=== PATIENT | female | born 1935 | race Caucasian/White ===

== ENCOUNTER 2017-04-09 08:56 | Inpatient (IN) ==
[2017-04-09] MEDS ORDERED: TICAGRELOR 90 MG TABLET PO STA (09:25)
[2017-04-09] MEDS ORDERED: TICAGRELOR 90 MG TABLET ONE ×2 (09:25→09:29)
[2017-04-09] MEDS ORDERED: ENOXAPARIN 100 MG/ML SYRINGE SUBCUT STA (09:25)
[2017-04-09] MEDS ORDERED: ENOXAPARIN 100 MG/ML SYRINGE SUBCUT ONE (09:25)
[2017-04-09] MEDS ORDERED: ASPIRIN 325 MG TABLET PO STA (09:25)
[2017-04-09] MEDS ORDERED: NITROGLYCERIN 2% OINT 1 INCH/GM PACK TOP STA (09:25)
[2017-04-09] MEDS ORDERED: ONDANSETRON 4 MG/2 ML VIAL IV STA (09:25)
[2017-04-09] MEDS ORDERED: MORPHINE 2 MG/1 ML SYRINGE IV STA (09:25)
[2017-04-09] MEDS ORDERED: ASPIRIN 325 MG TABLET ONE (09:25)
[2017-04-09] MEDS ORDERED: HEPARIN/NACL 0.9% 2 UNITS/ML 1,000 ML IV ONE (09:30)
[2017-04-09] MEDS ORDERED: LIDOCAINE 1% 20 ML VIAL ONE (09:30)
[2017-04-09] MEDS ORDERED: HEPARIN/NACL 0.9% 2 UNITS/ML 500 ML IV ONE (09:31)
[2017-04-09 09:40] LABS: Basophils # 0.1 10*3/uL (0.0-0.2); Basophils % 1.4 % (0.0-0.8); Eosinophils # 0.1 10*3/uL (0.0-0.87); Eosinophils % 0.8 % (0.00-10.9); Hematocrit 41.2 VOL% (35.7-47.0); Hemoglobin 13.9 GM/DL (12.0-16.0); Immature Granulocytes % 0.4 %; Immature Granulocytes Absolute 0.04 #; Lymphocytes # 4.8 10*3/uL (1.4-4.0); Lymphocytes % 49.9 % (21.3-54.2); Mean Corpuscular HGB Conc 33.7 GM/DL (32-36); Mean Corpuscular Hemoglobin 31 PG (27-34); Mean Platelet Volume 9.9 FL (9.6-12.0); Monocytes # 0.6 10*3/uL (0.11-0.8); Monocytes % 6.1 % (1.7-12.7); Neutrophils # 3.9 10*3/uL (1.4-7.4); Neutrophils % 41.4 % (38.7-73.9); Platelet Count 137 T/CUMM (130-400); Red Blood Count 4.48 MC/CUMM (3.8-5.5); Red Cell Distribution Width 12.8 % (9.3-17.3); White Blood Count 9.5 T/CUMM (4-12)
[2017-04-09] MEDS ORDERED: MIDAZOLAM 2 MG/2 ML VIAL ONE (09:44)
[2017-04-09] MEDS ORDERED: HYDROmorphone 2 MG/1 ML VIAL ONE (09:44)
[2017-04-09 09:49] LABS: PT Patient Result 10.3 SECS
[2017-04-09] MEDS ORDERED: NITROGLYCERIN DRIP 50 MG/250 ML BOTTLE IV ONE (10:05)
[2017-04-09] MEDS ORDERED: ACETAMINOPHEN 325 MG TABLET PO PRN (10:25)
[2017-04-09] MEDS ORDERED: NITROGLYCERIN SL 0.4 MG TABLET SL PRN (10:25)
[2017-04-09] MEDS ORDERED: ONDANSETRON 4 MG/2 ML VIAL IV PRN (10:25)
[2017-04-09 10:30] LABS: Albumin 3.5 G/DL (3.4-5.0); Bilirubin,Total 0.6 MG/DL (0.2-1.0); Calcium 8.6 MG/DL (8.5-10.1); Magnesium 2.3 MG/DL (1.8-2.4); Potassium 3.8 MMOL/L (3.5-5.1); Total Protein 6.8 G/DL (6.4-8.3)
[2017-04-09] MEDS ORDERED: SODIUM CHLORIDE 0.9% 1,000 ML IV SCH (10:30)
[2017-04-09 16:45] LABS: Apearance,Urine CLEAR (Clear); Bilirubin,Urine Negative (Negative); Blood, Urine Negative (Negative); Glucose,Urine (UA) Negative (Negative); Ketones,Urine Negative (Negative); Mucus,Urine Occasional /LPF (Occasional); Nitrite,Urine Negative (Negative); Protein,Urine Negative; RBC,Urine <1 /HPF (0-4); Squamous Epithelial Cell,Urine Occasional /HPF (0-10); Urine Color Yellow (Yellow); Urine Specific Gravity 1.031 (1.001-1.035); Urine Urobilinogen < 2.0 EU/DL (0.2-1.0); WBC,Urine 1 /HPF (0-6)
[2017-04-09] MEDS ORDERED: diphenhydrAMINE CAP 25 MG CAPSULE PO PRN (17:20)
[2017-04-09] MEDS ORDERED: POTASSIUM CHLORIDE 20 MEQ TABLET PO PRN (17:20)
[2017-04-09] MEDS ORDERED: DOCUSATE SODIUM 100 MG CAPSULE PO PRN (17:20)
[2017-04-09] MEDS ORDERED: ZALEPLON 5 MG CAPSULE PO PRN (21:00)
[2017-04-09] MEDS: TICAGRELOR 90 MG TABLET PO SCH (21:32)
[2017-04-09] MEDS: ROSUVASTATIN 20 MG TABLET PO SCH (21:32)
[2017-04-10 05:57] LABS: Basophils # 0.1 10*3/uL (0.0-0.2); Basophils % 1.2 % (0.0-0.8); Eosinophils # 0.1 10*3/uL (0.0-0.87); Eosinophils % 1.2 % (0.00-10.9); Hematocrit 33.7 VOL% (35.7-47.0); Hemoglobin 11.4 GM/DL (12.0-16.0); Immature Granulocytes % 0.3 %; Immature Granulocytes Absolute 0.03 #; Lymphocytes % 50.8 % (21.3-54.2); Mean Corpuscular HGB Conc 33.8 GM/DL (32-36); Mean Corpuscular Hemoglobin 31 PG (27-34); Mean Corpuscular Volume 90.3 FL (87-102); Mean Platelet Volume 9.9 FL (9.6-12.0); Monocytes # 0.6 10*3/uL (0.11-0.8); Monocytes % 6.1 % (1.7-12.7); Neutrophils % 40.4 % (38.7-73.9); Platelet Count 137 T/CUMM (130-400); Red Blood Count 3.73 MC/CUMM (3.8-5.5); Red Cell Distribution Width 12.7 % (9.3-17.3); White Blood Count 9.8 T/CUMM (4-12)
[2017-04-10 06:39] LABS: CKMB % 9.5 %; Osmolality,Calculated 286.7 MOS/KG (273-304); Potassium 3.4 MMOL/L (3.5-5.1); Risk Ratio 4.11; Troponin I Only 14.1 NG/ML (0.00-0.045); VLDL CHOLESTEROL 25.2 MG/DL
[2017-04-10] MEDS ORDERED: POTASSIUM CHLORIDE 20 MEQ TABLET PO ONE (07:39)
[2017-04-10] MEDS: ASPIRIN EC 81 MG TABLET PO SCH (07:59)
[2017-04-10] MEDS: PANTOPRAZOLE 40 MG TABLET PO SCH (07:59)
[2017-04-10] MEDS: TICAGRELOR 90 MG TABLET PO SCH ×2 (07:59→20:22)
[2017-04-10] MEDS: ROSUVASTATIN 20 MG TABLET PO SCH (20:22)
[2017-04-11 04:32] LABS: Basophils # 0.1 10*3/uL (0.0-0.2); Basophils % 1.1 % (0.0-0.8); Eosinophils # 0.1 10*3/uL (0.0-0.87); Hematocrit 39.7 VOL% (35.7-47.0); Hemoglobin 13.3 GM/DL (12.0-16.0); Immature Granulocytes % 0.3 %; Immature Granulocytes Absolute 0.04 #; Lymphocytes # 6.8 10*3/uL (1.4-4.0); Lymphocytes % 56.9 % (21.3-54.2); Mean Corpuscular HGB Conc 33.5 GM/DL (32-36); Mean Corpuscular Hemoglobin 31 PG (27-34); Mean Corpuscular Volume 91.3 FL (87-102); Mean Platelet Volume 9.8 FL (9.6-12.0); Monocytes # 0.7 10*3/uL (0.11-0.8); Monocytes % 5.6 % (1.7-12.7); Neutrophils # 4.2 10*3/uL (1.4-7.4); Neutrophils % 35.1 % (38.7-73.9); Platelet Count 149 T/CUMM (130-400); Red Blood Count 4.35 MC/CUMM (3.8-5.5); Red Cell Distribution Width 12.7 % (9.3-17.3); White Blood Count 11.9 T/CUMM (4-12)
[2017-04-11 04:59] LABS: Calcium 8.4 MG/DL (8.5-10.1); Magnesium 2.1 MG/DL (1.8-2.4); Osmolality,Calculated 279.3 MOS/KG (273-304); Potassium 4.1 MMOL/L (3.5-5.1)
[2017-04-11 05:04] LABS: CKMB % 4.3 %
[2017-04-11 05:06] LABS: Troponin I Only 6.61 NG/ML (0.00-0.045)
[2017-04-11 05:13] LABS: Atypical Lymphocytes Few; Eosinophils 1 % (0-10); Lymphocytes 53 % (20-55); Platelet Estimate Normal; Segmented Neutrophils 37 % (50-85); Total Cells Counted 100
[2017-04-11] MEDS: PANTOPRAZOLE 40 MG TABLET PO SCH (09:09)
[2017-04-11] MEDS: TICAGRELOR 90 MG TABLET PO SCH ×2 (09:09→21:31)
[2017-04-11] MEDS: ASPIRIN EC 81 MG TABLET PO SCH (09:10)
[2017-04-11] MEDS: METOPROLOL TARTRATE 25 MG TABLET PO SCH (14:52)
[2017-04-11] MEDS: ROSUVASTATIN 20 MG TABLET PO SCH (21:31)
[2017-04-12 03:44] LABS: Basophils # 0.1 10*3/uL (0.0-0.2); Basophils % 1.1 % (0.0-0.8); Eosinophils # 0.1 10*3/uL (0.0-0.87); Eosinophils % 1.2 % (0.00-10.9); Hematocrit 34.9 VOL% (35.7-47.0); Immature Granulocytes % 0.4 %; Immature Granulocytes Absolute 0.04 #; Lymphocytes # 5.7 10*3/uL (1.4-4.0); Lymphocytes % 57.6 % (21.3-54.2); Mean Corpuscular HGB Conc 34.4 GM/DL (32-36); Mean Corpuscular Hemoglobin 31 PG (27-34); Mean Corpuscular Volume 89.9 FL (87-102); Mean Platelet Volume 9.9 FL (9.6-12.0); Monocytes # 0.5 10*3/uL (0.11-0.8); Monocytes % 5.1 % (1.7-12.7); Neutrophils # 3.4 10*3/uL (1.4-7.4); Neutrophils % 34.6 % (38.7-73.9); Platelet Count 156 T/CUMM (130-400); Red Blood Count 3.88 MC/CUMM (3.8-5.5); Red Cell Distribution Width 12.8 % (9.3-17.3)
[2017-04-12 04:13] LABS: Calcium 8.5 MG/DL (8.5-10.1); Magnesium 2.1 MG/DL (1.8-2.4); Osmolality,Calculated 284.8 MOS/KG (273-304); Potassium 3.5 MMOL/L (3.5-5.1)
[2017-04-12 04:54] LABS: Lymphocytes 51 % (20-55); Myelocytes 3 %; Platelet Estimate Adequate; Segmented Neutrophils 44 % (50-85); Total Cells Counted 100
[2017-04-12 07:39] VITALS: BP 103/64
[2017-04-12] MEDS: METOPROLOL TARTRATE 25 MG TABLET PO SCH (08:29)
[2017-04-12] MEDS: TICAGRELOR 90 MG TABLET PO SCH (08:29)
[2017-04-12] MEDS: ASPIRIN EC 81 MG TABLET PO SCH (08:29)
[2017-04-12] MEDS: PANTOPRAZOLE 40 MG TABLET PO SCH (08:30)
== END 2017-04-12 10:09 | disposition home or self-care (01) | DRG 247 ==
LOC: N.ED 08:56 → N.CL 09:33 → N.CC 10:25 → N.TELES 04-11 13:17
PROVIDERS: ADMIT Internal Medicine Cardiovascular Disease; ATTEND Internal Medicine Cardiovascular Disease
PROC: CLCCHCL (ICD-10-PCS; 2017-04-09 13:45)

== ENCOUNTER 2017-10-30 08:31 | Inpatient (IN) ==
[2017-10-30] MEDS ORDERED: SODIUM CHLORIDE 0.9% 500 ML IV STA (09:23)
[2017-10-30 10:26] LABS: Basophils # 0.1 10*3/uL (0.0-0.2); Basophils % 1.1 % (0.0-0.8); Eosinophils % 0.1 % (0.00-10.9); Hematocrit 39.3 VOL% (35.7-47.0); Hemoglobin 13.6 GM/DL (12.0-16.0); Immature Granulocytes % 0.7 %; Immature Granulocytes Absolute 0.08 #; Lymphocytes # 3.7 10*3/uL (1.4-4.0); Lymphocytes % 34.2 % (21.3-54.2); Mean Corpuscular HGB Conc 34.6 GM/DL (32-36); Mean Corpuscular Hemoglobin 31 PG (27-34); Mean Corpuscular Volume 89.5 FL (87-102); Mean Platelet Volume 11.2 FL (9.6-12.0); Monocytes # 0.6 10*3/uL (0.11-0.8); Monocytes % 5.2 % (1.7-12.7); Neutrophils # 6.4 10*3/uL (1.4-7.4); Neutrophils % 58.7 % (38.7-73.9); Platelet Count 111 T/CUMM (130-400); Red Blood Count 4.39 MC/CUMM (3.8-5.5); Red Cell Distribution Width 12.6 % (9.3-17.3); White Blood Count 10.9 T/CUMM (4-12)
[2017-10-30 11:04] LABS: Albumin 3.9 G/DL (3.4-5.0); Bilirubin,Total 1.5 MG/DL (0.2-1.0); Calcium 9.5 MG/DL (8.5-10.1); Osmolality,Calculated 291.1 MOS/KG (273-304); Potassium 3.4 MMOL/L (3.5-5.1); Thyroid Stimulating Hormone 9.21 uIU/ml (0.358-3.74); Total Protein 7.5 G/DL (6.4-8.3)
[2017-10-30 11:27] LABS: Apearance,Urine Slightly Hazy (Clear); Bacteria,Urine Occasional /HPF (Few); Bilirubin,Urine Negative (Negative); Blood, Urine Moderate mg/dL (Negative); Glucose,Urine (UA) 50 mg/dL (Negative); Granular Casts,Urine 45 /LPF (0-1); Hyaline Casts,Urine 34 /LPF (0-3); Ketones,Urine Negative (Negative); Mucus,Urine Occasional /LPF (Occasional); Nitrite,Urine Negative (Negative); Protein,Urine 100 MG/DL; RBC,Urine 1 /HPF (0-4); Squamous Epithelial Cell,Urine Occasional /HPF (0-10); Urine Color Yellow (Yellow); Urine Specific Gravity 1.013 (1.001-1.035); Urine Urobilinogen < 2.0 EU/DL (0.2-1.0); WBC,Urine 1 /HPF (0-6)
[2017-10-30] MEDS ORDERED: DOCUSATE SODIUM 100 MG CAPSULE PO PRN (11:52)
[2017-10-30] MEDS ORDERED: ONDANSETRON 4 MG/2 ML VIAL IV PRN (11:52)
[2017-10-30] MEDS ORDERED: diphenhydrAMINE CAP 25 MG CAPSULE PO PRN (11:52)
[2017-10-30] MEDS ORDERED: guaiFENesin/DM ER 600-30 MG TABLET PO PRN (11:52)
[2017-10-30] MEDS ORDERED: ACETAMINOPHEN 325 MG TABLET PO PRN (11:52)
[2017-10-30] MEDS ORDERED: FLUTICASONE 50 MCG NASAL SPRAY 16 GM BOTTLE BOTH NARES PRN (11:55)
[2017-10-30] MEDS ORDERED: CASTOR OIL 59 ML BOTTLE PO PRN (11:55)
[2017-10-30] MEDS ORDERED: NITROGLYCERIN SL 0.4 MG TABLET SL PRN (11:55)
[2017-10-30] MEDS: SODIUM CHLORIDE 0.9% 1,000 ML IV SCH ×2 (12:20→21:27)
[2017-10-30] MEDS ORDERED: DEXTROSE 50% 25 GM/50 ML VIAL IV PRN (13:28)
[2017-10-30] MEDS ORDERED: GLUCAGON 1 MG VIAL IM PRN (13:28)
[2017-10-30] MEDS: INSULIN LISPRO 100 UNIT/ML SUBCUT SCH ×2 (15:59→21:31)
[2017-10-30] MEDS: TICAGRELOR 90 MG TABLET PO SCH (21:26)
[2017-10-30] MEDS: ROSUVASTATIN 20 MG TABLET PO SCH (21:27)
[2017-10-31] MEDS: SODIUM CHLORIDE 0.9% 1,000 ML IV SCH ×3 (05:43→22:11)
[2017-10-31 06:21] LABS: Basophils # 0.1 10*3/uL (0.0-0.2); Basophils % 1.2 % (0.0-0.8); Eosinophils # 0.1 10*3/uL (0.0-0.87); Eosinophils % 0.7 % (0.00-10.9); Immature Granulocytes % 0.3 %; Immature Granulocytes Absolute 0.03 #; Lymphocytes # 5.7 10*3/uL (1.4-4.0); Lymphocytes % 51.5 % (21.3-54.2); Mean Corpuscular HGB Conc 35.2 GM/DL (32-36); Mean Corpuscular Hemoglobin 31 PG (27-34); Mean Corpuscular Volume 88.8 FL (87-102); Mean Platelet Volume 11.6 FL (9.6-12.0); Monocytes # 0.6 10*3/uL (0.11-0.8); Monocytes % 5.8 % (1.7-12.7); Neutrophils # 4.5 10*3/uL (1.4-7.4); Neutrophils % 40.5 % (38.7-73.9); Platelet Count 86 T/CUMM (130-400); Red Blood Count 3.49 MC/CUMM (3.8-5.5); Red Cell Distribution Width 12.9 % (9.3-17.3)
[2017-10-31 06:23] LABS: Hemoglobin 10.9 GM/DL (12.0-16.0)
[2017-10-31 06:31] LABS: Apearance,Urine CLEAR (Clear); Bilirubin,Urine Negative (Negative); Blood, Urine Small mg/dL (Negative); Glucose,Urine (UA) Negative (Negative); Ketones,Urine Negative (Negative); Mucus,Urine Occasional /LPF (Occasional); Nitrite,Urine Negative (Negative); Protein,Urine 30 MG/DL; RBC,Urine <1 /HPF (0-4); Squamous Epithelial Cell,Urine Occasional /HPF (0-10); Urine Color Yellow (Yellow); Urine Urobilinogen < 2.0 EU/DL (0.2-1.0); WBC,Urine 2 /HPF (0-6)
[2017-10-31 06:36] LABS: Bilirubin,Total 0.9 MG/DL (0.2-1.0); Calcium 8.2 MG/DL (8.5-10.1); Osmolality,Calculated 292.3 MOS/KG (273-304); Potassium 3.4 MMOL/L (3.5-5.1); Total Protein 5.8 G/DL (6.4-8.3)
[2017-10-31] MEDS: LEVOTHYROXINE 25 MCG TABLET PO SCH (06:39)
[2017-10-31 06:52] LABS: Platelet Estimate Decreased
[2017-10-31] MEDS: INSULIN LISPRO 100 UNIT/ML SUBCUT SCH ×4 (07:41→21:25)
[2017-10-31] MEDS: METOPROLOL TARTRATE 25 MG TABLET PO SCH (08:31)
[2017-10-31] MEDS: ASPIRIN EC 81 MG TABLET PO SCH (08:31)
[2017-10-31] MEDS: PANTOPRAZOLE 40 MG TABLET PO SCH (08:31)
[2017-10-31] MEDS: TICAGRELOR 90 MG TABLET PO SCH ×2 (08:31→20:51)
[2017-10-31] MEDS: POTASSIUM CHLORIDE RIDER 10 MEQ in PREMIX 1 EACH IV PRN ×3 (09:17→11:40)
[2017-10-31] MEDS: ROSUVASTATIN 20 MG TABLET PO SCH (20:51)
[2017-11-01] MEDS: SODIUM CHLORIDE 0.9% 1,000 ML IV SCH (05:44)
[2017-11-01] MEDS: LEVOTHYROXINE 25 MCG TABLET PO SCH (06:17)
[2017-11-01 06:18] LABS: Calcium 7.3 MG/DL (8.5-10.1); Osmolality,Calculated 299.6 MOS/KG (273-304); Potassium 3.2 MMOL/L (3.5-5.1)
[2017-11-01] MEDS: POTASSIUM CHLORIDE RIDER 10 MEQ in PREMIX 1 EACH IV PRN (06:29)
[2017-11-01] MEDS ORDERED: POTASSIUM CHLORIDE INJ 10 MEQ in LACTATED RINGERS 1,000 ML IV SCH (08:30)
[2017-11-01] MEDS: TICAGRELOR 90 MG TABLET PO SCH ×2 (09:15→21:15)
[2017-11-01] MEDS: PANTOPRAZOLE 40 MG TABLET PO SCH (09:15)
[2017-11-01] MEDS: ASPIRIN EC 81 MG TABLET PO SCH (09:15)
[2017-11-01] MEDS: METOPROLOL TARTRATE 25 MG TABLET PO SCH (09:15)
[2017-11-01] MEDS: POTASSIUM CHLORIDE 20 MEQ TABLET PO PRN ×3 (09:48→16:33)
[2017-11-01] MEDS: LACTATED RINGERS 1,000 ML IV SCH (09:48)
[2017-11-01] MEDS: INSULIN LISPRO 100 UNIT/ML SUBCUT SCH ×4 (12:02→22:16)
[2017-11-01] MEDS: ROSUVASTATIN 20 MG TABLET PO SCH (21:15)
[2017-11-02] MEDS: LACTATED RINGERS 1,000 ML IV SCH ×5 (02:06→23:10)
[2017-11-02] MEDS: LEVOTHYROXINE 25 MCG TABLET PO SCH (06:13)
[2017-11-02 06:22] LABS: Calcium 7.7 MG/DL (8.5-10.1); Osmolality,Calculated 300.4 MOS/KG (273-304); Potassium 3.7 MMOL/L (3.5-5.1)
[2017-11-02] MEDS: PANTOPRAZOLE 40 MG TABLET PO SCH (09:01)
[2017-11-02] MEDS: METOPROLOL TARTRATE 25 MG TABLET PO SCH (09:01)
[2017-11-02] MEDS: TICAGRELOR 90 MG TABLET PO SCH ×2 (09:01→21:22)
[2017-11-02] MEDS: ASPIRIN EC 81 MG TABLET PO SCH (09:01)
[2017-11-02] MEDS: INSULIN LISPRO 100 UNIT/ML SUBCUT SCH ×4 (09:04→22:52)
[2017-11-02] MEDS: ROSUVASTATIN 20 MG TABLET PO SCH (21:22)
[2017-11-03 01:40] LABS: Calcium 7.4 MG/DL (8.5-10.1); Osmolality,Calculated 294.7 MOS/KG (273-304); Potassium 3.5 MMOL/L (3.5-5.1)
[2017-11-03] MEDS ORDERED: ACETAMINOPHEN 325 MG TABLET PO PRN (02:12)
[2017-11-03] MEDS ORDERED: ALUMINUM/MAGNES/SIMETH MAX STR 30 ML UDCUP PO PRN (02:12)
[2017-11-03] MEDS: LEVOTHYROXINE 25 MCG TABLET PO SCH (06:42)
[2017-11-03] MEDS: TICAGRELOR 90 MG TABLET PO SCH ×2 (08:31→21:31)
[2017-11-03] MEDS: PANTOPRAZOLE 40 MG TABLET PO SCH (08:31)
[2017-11-03] MEDS: ASPIRIN EC 81 MG TABLET PO SCH (08:31)
[2017-11-03] MEDS: INSULIN LISPRO 100 UNIT/ML SUBCUT SCH ×4 (08:32→22:09)
[2017-11-03] MEDS: LACTATED RINGERS 1,000 ML IV SCH ×3 (08:33→23:39)
[2017-11-03] MEDS: METOPROLOL TARTRATE 25 MG TABLET PO SCH (08:33)
[2017-11-03] MEDS: ROSUVASTATIN 20 MG TABLET PO SCH (21:31)
[2017-11-04] MEDS: LEVOTHYROXINE 25 MCG TABLET PO SCH (06:23)
[2017-11-04] MEDS: INSULIN LISPRO 100 UNIT/ML SUBCUT SCH ×4 (08:08→22:23)
[2017-11-04] MEDS: ASPIRIN EC 81 MG TABLET PO SCH (08:22)
[2017-11-04] MEDS: TICAGRELOR 90 MG TABLET PO SCH ×2 (08:23→21:26)
[2017-11-04] MEDS: PANTOPRAZOLE 40 MG TABLET PO SCH (08:23)
[2017-11-04] MEDS: LACTATED RINGERS 1,000 ML IV SCH ×2 (09:27→17:39)
[2017-11-04 15:46] LABS: Albumin 2.3 G/DL (3.4-5.0); Calcium 7.7 MG/DL (8.5-10.1); Potassium 3.7 MMOL/L (3.5-5.1)
[2017-11-04] MEDS: ROSUVASTATIN 20 MG TABLET PO SCH (21:26)
[2017-11-05] MEDS: LACTATED RINGERS 1,000 ML IV SCH ×4 (02:05→22:18)
[2017-11-05] MEDS: LEVOTHYROXINE 25 MCG TABLET PO SCH (06:10)
[2017-11-05] MEDS: INSULIN LISPRO 100 UNIT/ML SUBCUT SCH ×4 (07:36→20:59)
[2017-11-05] MEDS ORDERED: METOPROLOL TARTRATE 25 MG TABLET ONE (08:40)
[2017-11-05] MEDS: TICAGRELOR 90 MG TABLET PO SCH ×2 (09:11→20:55)
[2017-11-05] MEDS: ASPIRIN EC 81 MG TABLET PO SCH (09:11)
[2017-11-05] MEDS: METOPROLOL TARTRATE 25 MG TABLET PO SCH (09:11)
[2017-11-05] MEDS: PANTOPRAZOLE 40 MG TABLET PO SCH (09:11)
[2017-11-05] MEDS: ROSUVASTATIN 20 MG TABLET PO SCH (20:55)
[2017-11-06] MEDS: LEVOTHYROXINE 25 MCG TABLET PO SCH (05:54)
[2017-11-06] MEDS: LACTATED RINGERS 1,000 ML IV SCH ×3 (05:54→09:42)
[2017-11-06 06:26] LABS: Calcium 7.6 MG/DL (8.5-10.1); Osmolality,Calculated 296.6 MOS/KG (273-304); Potassium 3.6 MMOL/L (3.5-5.1)
[2017-11-06] MEDS: INSULIN LISPRO 100 UNIT/ML SUBCUT SCH ×2 (08:00→11:35)
[2017-11-06] MEDS: ASPIRIN EC 81 MG TABLET PO SCH (09:11)
[2017-11-06] MEDS: METOPROLOL TARTRATE 25 MG TABLET PO SCH (09:11)
[2017-11-06] MEDS: TICAGRELOR 90 MG TABLET PO SCH (09:11)
[2017-11-06] MEDS: PANTOPRAZOLE 40 MG TABLET PO SCH (09:11)
[2017-11-06 12:14] VITALS: BP 87/44
== END 2017-11-06 16:15 | disposition home or self-care (01) | DRG 683 ==
LOC: N.ED 08:31 → N.EDINP 08:31 → N.TELEN 13:28 → SUATTDRO 10-31 11:09
PROVIDERS: ADMIT Internal Medicine Geriatric Medicine; ATTEND Internal Medicine

== ENCOUNTER 2018-04-21 11:27 | Inpatient (IN) ==
[2018-04-21 12:34] LABS: Basophils # 0.1 10*3/uL (0.0-0.2); Basophils % 0.9 % (0.0-0.8); Eosinophils # 0.1 10*3/uL (0.0-0.87); Eosinophils % 0.8 % (0.00-10.9); Hematocrit 34.5 VOL% (35.7-47.0); Hemoglobin 11.2 GM/DL (12.0-16.0); Immature Granulocytes % 0.5 %; Immature Granulocytes Absolute 0.04 #; Mean Corpuscular HGB Conc 32.5 GM/DL (32-36); Mean Corpuscular Hemoglobin 31 PG (27-34); Mean Corpuscular Volume 96.4 FL (87-102); Mean Platelet Volume 9.8 FL (9.6-12.0); Monocytes # 0.5 10*3/uL (0.11-0.8); Monocytes % 5.7 % (1.7-12.7); Neutrophils # 3.9 10*3/uL (1.4-7.4); Neutrophils % 45.1 % (38.7-73.9); Platelet Count 128 T/CUMM (130-400); Red Blood Count 3.58 MC/CUMM (3.8-5.5); Red Cell Distribution Width 12.5 % (9.3-17.3); White Blood Count 8.6 T/CUMM (4-12)
[2018-04-21 12:43] LABS: PT Patient Result 10.5 SECS
[2018-04-21 12:50] LABS: Albumin 3.6 G/DL (3.4-5.0); Bilirubin,Total 0.7 MG/DL (0.2-1.0); Calcium 8.3 MG/DL (8.5-10.1); Osmolality,Calculated 291.3 MOS/KG (273-304); Potassium 4.4 MMOL/L (3.5-5.1); Total Protein 6.5 G/DL (6.4-8.3)
[2018-04-21] MEDS ORDERED: NITROGLYCERIN SL 0.4 MG TABLET SL PRN (13:31)
[2018-04-21 13:37] LABS: Apearance,Urine CLEAR (Clear); Protein,Urine Negative; Urine Color Yellow (Yellow); Urine Specific Gravity 1.006 (1.001-1.035)
[2018-04-21 13:38] LABS: Bacteria,Urine Occasional /HPF (Few); Bilirubin,Urine Negative (Negative); Blood, Urine Small mg/dL (Negative); Glucose,Urine (UA) Negative (Negative); Ketones,Urine Negative (Negative); Nitrite,Urine Negative (Negative); RBC,Urine 1 /HPF (0-4); Squamous Epithelial Cell,Urine Occasional /HPF (0-10); Urine Urobilinogen < 2.0 EU/DL (0.2-1.0); WBC,Urine <1 /HPF (0-6)
[2018-04-21] MEDS ORDERED: GLUCAGON 1 MG VIAL IM PRN ×2 (13:47)
[2018-04-21] MEDS ORDERED: DEXTROSE 50% 25 GM/50 ML VIAL IV PRN ×2 (13:47)
[2018-04-21] MEDS ORDERED: LACTULOSE 20 GM/30 ML UDCUP PO PRN (14:08)
[2018-04-21] MEDS ORDERED: ONDANSETRON 4 MG/2 ML VIAL IV PRN (14:08)
[2018-04-21] MEDS ORDERED: ACETAMINOPHEN 325 MG TABLET PO PRN (14:08)
[2018-04-21] MEDS ORDERED: traZODone 50 MG TABLET PO PRN (14:08)
[2018-04-21 14:14] LABS: Risk Ratio 1.84; VLDL CHOLESTEROL 23.4 MG/DL
[2018-04-21] MEDS ORDERED: PNEUMOCOCCAL VACCINE (13 VALENT) 0.5 ML SYRINGE IM ONE (17:00)
[2018-04-21] MEDS: INSULIN REGULAR 100 UNIT/ML SUBCUT SCH ×2 (18:07→22:10)
[2018-04-21] MEDS: AMOXICILLIN 500 MG CAPSULE PO SCH ×2 (18:14→20:54)
[2018-04-21] MEDS ORDERED: ATROPINE 1 MG/10 ML SYRINGE IV PRN (18:23)
[2018-04-21] MEDS: SODIUM CHLORIDE 0.9% 1,000 ML IV SCH (18:54)
[2018-04-21] MEDS: DOCUSATE SODIUM 100 MG CAPSULE PO SCH (20:54)
[2018-04-21] MEDS: SENNA 8.6 MG TABLET PO SCH (20:54)
[2018-04-21] MEDS: ROSUVASTATIN 20 MG TABLET PO SCH (20:55)
[2018-04-21] MEDS ORDERED: TICAGRELOR 90 MG TABLET PO SCH (21:00)
[2018-04-22] MEDS: SODIUM CHLORIDE 0.9% 1,000 ML IV SCH ×2 (04:51→20:57)
[2018-04-22] MEDS ORDERED: ceFAZolin 1,000 MG VIAL ONE (07:47)
[2018-04-22] MEDS ORDERED: LIDOCAINE 1%/EPI INJ 20 ML VIAL ONE (07:47)
[2018-04-22] MEDS ORDERED: TISSUE ADHESIVE 1 EACH APPLICATOR TOP ONE (07:47)
[2018-04-22] MEDS ORDERED: MIDAZOLAM 2 MG/2 ML VIAL ONE (08:01)
[2018-04-22] MEDS ORDERED: HYDROmorphone 2 MG/1 ML VIAL ONE (08:01)
[2018-04-22] MEDS ORDERED: POLYETHYLENE GLYCOL POWDER 17 GM PACK PO SCH (09:00)
[2018-04-22] MEDS ORDERED: ASPIRIN EC 81 MG TABLET PO SCH (09:00)
[2018-04-22] MEDS ORDERED: FLUDROCORTISONE 0.1 MG TABLET PO SCH (09:00)
[2018-04-22] MEDS: INSULIN REGULAR 100 UNIT/ML SUBCUT SCH ×4 (09:17→21:05)
[2018-04-22] MEDS: SENNA 8.6 MG TABLET PO SCH ×2 (09:31→20:57)
[2018-04-22] MEDS: DOCUSATE SODIUM 100 MG CAPSULE PO SCH ×2 (09:31→20:57)
[2018-04-22] MEDS: ASPIRIN EC 81 MG TABLET PO SCH (09:32)
[2018-04-22] MEDS: PANTOPRAZOLE 40 MG TABLET PO SCH (09:32)
[2018-04-22] MEDS: AMOXICILLIN 500 MG CAPSULE PO SCH ×2 (09:32→20:57)
[2018-04-22] MEDS: COENZYME Q10 100 MG CAPSULE PO SCH (09:33)
[2018-04-22] MEDS: LEVOTHYROXINE 25 MCG TABLET PO SCH (09:53)
[2018-04-22 10:14] LABS: Basophils # 0.1 10*3/uL (0.0-0.2); Eosinophils % 0.5 % (0.00-10.9); Hematocrit 32.2 VOL% (35.7-47.0); Hemoglobin 10.5 GM/DL (12.0-16.0); Immature Granulocytes % 0.7 %; Immature Granulocytes Absolute 0.06 #; Lymphocytes # 3.1 10*3/uL (1.4-4.0); Lymphocytes % 37.1 % (21.3-54.2); Mean Corpuscular HGB Conc 32.6 GM/DL (32-36); Mean Corpuscular Hemoglobin 32 PG (27-34); Mean Corpuscular Volume 97.9 FL (87-102); Mean Platelet Volume 9.7 FL (9.6-12.0); Monocytes # 0.7 10*3/uL (0.11-0.8); Monocytes % 7.8 % (1.7-12.7); Neutrophils # 4.4 10*3/uL (1.4-7.4); Neutrophils % 52.9 % (38.7-73.9); Platelet Count 107 T/CUMM (130-400); Red Blood Count 3.29 MC/CUMM (3.8-5.5); Red Cell Distribution Width 12.8 % (9.3-17.3); White Blood Count 8.3 T/CUMM (4-12)
[2018-04-22] MEDS ORDERED: SKIN HEALING OINT (AQUAPHOR) 50 GM TUBE TOP SCH (10:30)
[2018-04-22 10:51] LABS: Bilirubin,Total 0.9 MG/DL (0.2-1.0); Osmolality,Calculated 292.8 MOS/KG (273-304); Potassium 3.9 MMOL/L (3.5-5.1); Total Protein 5.8 G/DL (6.4-8.3)
[2018-04-22] MEDS: ROSUVASTATIN 20 MG TABLET PO SCH (20:57)
[2018-04-23] MEDS: SODIUM CHLORIDE 0.9% 1,000 ML IV SCH (02:05)
[2018-04-23 04:23] LABS: Basophils # 0.1 10*3/uL (0.0-0.2); Basophils % 0.7 % (0.0-0.8); Eosinophils # 0.1 10*3/uL (0.0-0.87); Eosinophils % 0.8 % (0.00-10.9); Hematocrit 30.1 VOL% (35.7-47.0); Hemoglobin 9.8 GM/DL (12.0-16.0); Immature Granulocytes % 0.3 %; Immature Granulocytes Absolute 0.03 #; Lymphocytes # 6.2 10*3/uL (1.4-4.0); Lymphocytes % 56.6 % (21.3-54.2); Mean Corpuscular HGB Conc 32.6 GM/DL (32-36); Mean Corpuscular Hemoglobin 32 PG (27-34); Mean Corpuscular Volume 97.1 FL (87-102); Monocytes # 0.7 10*3/uL (0.11-0.8); Monocytes % 6.7 % (1.7-12.7); Neutrophils # 3.8 10*3/uL (1.4-7.4); Neutrophils % 34.9 % (38.7-73.9); Platelet Count 103 T/CUMM (130-400); Red Cell Distribution Width 12.7 % (9.3-17.3); White Blood Count 10.9 T/CUMM (4-12)
[2018-04-23 04:36] LABS: Calcium 8.1 MG/DL (8.5-10.1); Osmolality,Calculated 289.8 MOS/KG (273-304); Potassium 3.8 MMOL/L (3.5-5.1)
[2018-04-23 04:42] LABS: Albumin 2.9 G/DL (3.4-5.0); Bilirubin,Total 0.8 MG/DL (0.2-1.0); Calcium 8.1 MG/DL (8.5-10.1); Osmolality,Calculated 289.8 MOS/KG (273-304); Potassium 3.8 MMOL/L (3.5-5.1); Total Protein 5.6 G/DL (6.4-8.3)
[2018-04-23 04:56] LABS: Anisocytosis 1+; Band Neutrophils 3 % (0-10); Eosinophils 2 % (0-10); Lymphocytes 58 % (20-55); Microcytosis 1+; Platelet Estimate Decreased; Reactive Lymphocytes 2+; Segmented Neutrophils 30 % (50-85); Total Cells Counted 100
[2018-04-23] MEDS: LEVOTHYROXINE 25 MCG TABLET PO SCH (06:14)
[2018-04-23 07:44] VITALS: BP 112/63
[2018-04-23] MEDS: COENZYME Q10 100 MG CAPSULE PO SCH (09:42)
[2018-04-23] MEDS: DOCUSATE SODIUM 100 MG CAPSULE PO SCH (09:43)
[2018-04-23] MEDS: AMOXICILLIN 500 MG CAPSULE PO SCH (09:43)
[2018-04-23] MEDS: ASPIRIN EC 81 MG TABLET PO SCH (09:43)
[2018-04-23] MEDS: PANTOPRAZOLE 40 MG TABLET PO SCH (09:43)
== END 2018-04-23 11:45 | disposition home health service (06) | DRG 243 ==
LOC: EDUNIT# → EDBD → N.ED 11:27 → N.EDINP 11:27 → N.2W 14:20 → N.5E 17:50 → N.TELEN 04-22 07:06
PROVIDERS: ADMIT Internal Medicine Infectious Disease; ATTEND Internal Medicine Infectious Disease